=== PATIENT | male | born 1930 | race Caucasian/White ===

== ENCOUNTER → 2018-06-30 | Outpatient (CLI) | payer MEDICARE, BC, OTHER ==
[~2018-06-30] MED LIST: ALLOPURINOL 30300 M1 PO; ASPIRIN EC81 M1 PO; ATENOLOL 25MG T25 M1 PO; BRILINTA90 MG PO; BUSPAR 5 MG TABL5 M1; BUSPIRONE HCL10 MG PO; COZAAR 50 MG TA50 M1 PO; HYDROCHLOROTHIA25 M1 PO; HYTRIN 5 M5 MG/1 CAP PO; LANSOPRAZOLE30 MG PO; LIPITOR40 MG PO; NORCO 5-325 TA1 EAC1 PO; PROPRANOLOL 1010 MG PO; PROSCAR 5MG TABL5 MG PO; SERTRALINE HCL50 MG PO; TOLTERODINE TART4 MG PO; ULTRAM 50MG TAB50 MG PO; VITAMIN B-12500 MCG PO; VITAMIN B-6100 MG PO; VITAMIN B-625 MG PO; VITAMIN D31000 UNI2 PO; XANAX 0.5 MG0.5 M1 PO; ZOCOR 20 MG TAB20 M1 PO
--- NOTE | 2018-06-30 13:48 | 2DMMODE ---
[place] [address] 2 D/M-MODE ECHOCARDIOGRAM Name: KIRANHILLARY Silvia Room: [facility]#: [id number] Admission: 06/30/18 Attend Phys: Lacey Rodriguez Discharge: Date of : 32 Date of Service: 06/30/18 1347 Report #: [id number] THIS REPORT FOR: //name// APPROVED REPORT Study performed: 06/30/2018 09:54:03 EXAM: Comprehensive 2D, Doppler, and color-flow Echocardiogram Patient Location: Out-Patient BSA: 1.73 HR: 72 bpm BP: 116/60 mmHg Other Information Study Quality: Good Indications CAD Hypertension/HDD 2D Dimensions IVSd: 11.58 (7-11mm) LVOT Diam: 20.15 (18-24mm) LVDd: 39.66 mm PWd: 10.75 (7-11mm) Ascending Ao: 33.89 (22-36mm) LVDs: 22.62 (25-40mm) Aortic Root: 26.89 mm Volumes Left Atrial Volume (Systole) LA ESV Index: 16.60 mL/m2 Aortic Valve AoV Peak Osvaldo.: 1.45 m/s AO Peak Gr.: 8.46 mmHg LVOT Max P.83 mmHg AO Mean Gr.: 4.16 mmHg LVOT Mean P.21 mmHg LVOT Max V: 1.10 m/s AO V2 VTI: 28.19 cm LVOT Mean V: 0.68 m/s HEMA (VTI): 2.74 cm2 LVOT V1 VTI: 24.20 cm AI [place]: 4.52 m/s2 AI PHT: 312.98 ms Mitral Valve E/A Ratio: 0.59 MV Decel. Time: 242.42 [place] [address] 2 D/M-MODE ECHOCARDIOGRAM Name: HILLARY BECK Room: [facility]#: [id number] Admission: 06/30/18 Attend Phys: Lacey Rodriguez Discharge: Date of : 32 Date of Service: 06/30/18 1347 Report #: [id number] MV E Max Osvaldo.: 0.53 m/s MV PHT: 70.30 ms MVA (PHT): 3.13 cm2 TDI E/Lateral E': 6.63 E/Medial E': 7.57 Medial E' Osvaldo.: 0.07 m/s Lateral E' Osvaldo.: 0.08 m/s Pulmonary Valve PV Peak Osvaldo.: 1.15 m/s PV Peak Gr.: 5.31 mmHg Tricuspid Valve RAP Estimate: 5.00 mmHg TR Peak Gr.: 30.52 mmHg RVSP: 35.52 mmHg PA Pressure: 35.52 mmHg Left Ventricle The left ventricle is normal size. There is normal LV segmental wall motion. There is normal left ventricular wall thickness. Left ventricular systolic function is normal. The left ventricular ejection fraction is within the normal range. LVEF is 60%. Grade I - abnormal relaxation pattern. Right Ventricle The right ventricle is normal size. The right ventricular systolic function is normal. Atria The left atrium size is normal. The right atrium size is normal. Aortic Valve Mild aortic valve sclerosis. Mild aortic regurgitation. There is no aortic valvular stenosis. Mitral Valve The mitral valve is normal in structure. Mild mitral regurgitation. No evidence of mitral valve stenosis. Tricuspid Valve The tricuspid valve is normal in structure. Mild tricuspid regurgitation. Pulmonic Valve The pulmonary valve is normal in structure. [place] [address] 2 D/M-MODE ECHOCARDIOGRAM Name: HILLARY BECK Room: [facility]#: [id number] Admission: 06/30/18 Attend Phys: Lacey Rodriguez Discharge: Date of : 32 Date of Service: 06/30/18 1347 Report #: [id number] regurgitation. Great Vessels The aortic root is normal in size. IVC is normal in size and collapses >50% with inspiration. Pericardium There is no pericardial effusion. <Conclusion> The left ventricle is normal size. There is normal left ventricular wall thickness. Left ventricular systolic function is normal. The left ventricular ejection fraction is within the normal range. LVEF is 60%. Grade I - abnormal relaxation pattern. The right ventricle is normal size. The left atrium size is normal. Mild aortic valve sclerosis. Mild aortic regurgitation. There is no aortic valvular stenosis. The mitral valve is normal in structure. Mild mitral regurgitation. The tricuspid valve is normal in structure. Mild tricuspid regurgitation. IVC is normal in size and collapses >50% with inspiration. There is no pericardial effusion. There is normal LV segmental wall motion. <ELECTRONICALLY SIGNED> By: Chava Patterson MD, FACC 06/30/18 1347 1347 1347 Chava Patterson MD, FACC /INF
== END ==
LOC: M.CRD 09:37
DX: I08.8 Other rheumatic multiple valve diseases (principal); I25.10 Atherosclerotic heart disease of native coronary artery without angina pectoris; I10 Essential (primary) hypertension; Z88.8 Allergy status to other drugs, medicaments and biological substances

== ENCOUNTER 2018-07-21 02:55 | Emergency (ER) | payer MEDICARE, BC, OTHER ==
[~2018-07-21] VITALS: Ht 180.3 cm; Wt 61.2 kg
[2018-07-21] MEDS ORDERED: ALENDRONATE SOD70 MG PO (03:11)
[2018-07-21] MEDS ORDERED: ASPIR 8181 MG PO (03:11)
[2018-07-21] MEDS ORDERED: TUMS PO (03:12)
[2018-07-21] MEDS ORDERED: CLOPIDOGREL75 MG PO (03:12)
[2018-07-21 03:43] LABS: URINE BILIRUBIN NEGATIVE (Negative); URINE BLOOD TRACE (Negative); URINE CLARITY CLEAR; URINE COLOR YELLOW; URINE GLUCOSE-RANDOM NEGATIVE (Negative); URINE KETONES NEGATIVE (Negative); URINE LEUKOCYTES-REFLEX 1+ (Negative); URINE PROTEIN TRACE (Negative); URINE SPECIFIC GRAVITY 1.015 (1.005-1.030); URINE UROBILINOGEN 0.2 E.U./dl (0.2-1.0)
[2018-07-21 03:44] LABS: URINE NITRITE-REFLEX POSITIVE (Negative)
[2018-07-21 03:56] LABS: BACTERIA-REFLEX 1-9 Few /HPF (None Seen); CASTS None Seen /LPF (None Seen); SQUAMOUS NONE SEEN /LPF (0-3); URINE WBC-REFLEX >25 Many /HPF (0-5); WBC CLUMPS Moderate (None Seen)
[2018-07-21 03:57] LABS: CRYSTALS None Seen /LPF (None Seen); URINE RBC 0-2 Rare /HPF (0-2)
[2018-07-21 04:04] LABS: ABSOLUTE EOSINOPHILS 0.3 thou/uL (0.0-0.7); ABSOLUTE LYMPHOCYTES 1.1 thou/uL (0.8-5.3); ABSOLUTE MONOCYTES 0.5 thou/uL (0.0-1.2); ABSOLUTE NEUTROPHILS 4.2 thou/uL (1.6-8.1); BASOPHILS 0.7 %; EOSINOPHILS 4.7 %; HEMATOCRIT 34.3 % (42.0-52.0); HEMOGLOBIN 11.4 gm/dL (14.0-18.0); MCH 34.7 pg (26.0-34.0); MCHC 33.4 g/dL (28.0-37.0); MONOCYTES 8.9 %; MPV 7.3 fl. (7.2-11.1); NUCLEATED RBCS 0 /100WBC; PLATELET COUNT* 274 thou/uL (150-400); POLYS 67.7 %; RDW-CV 13.5 % (10.5-14.5); WBC 6.2 thou/uL (4.0-11.0)
[2018-07-21 04:15] LABS: INR 1.1; PROTIME 10.8 Seconds (9.20-11.50)
[2018-07-21 04:18] LABS: ANION GAP 7 mmol/L (7-16); BUN 24 mg/dL (7-18); CALCIUM 8.3 mg/dL (8.5-10.1); CHLORIDE 103 mmol/L (98-107); CO2 29 mmol/L (21-32); CREATININE 1.3 mg/dL (0.6-1.3); GLUCOSE 99 mg/dL (70-99); POTASSIUM 4.5 mmol/L (3.5-5.1); SODIUM 139 mmol/L (136-145)
[2018-07-21 04:36] LABS: ALBUMIN 2.6 g/dL (3.4-5.0); ALKALINE PHOSPHATASE 94 U/L (46-116); NT-PRO BRAIN NAT PEPTIDE 841 pg/mL (<300); SGOT 27 U/L (15-37); SGPT 37 U/L (30-65); TOTAL BILIRUBIN 0.5 mg/dL (<0.1-1.0); TOTAL PROTEIN 6.3 g/dL (6.4-8.2); TROPONIN-I LEVEL <0.06 ng/mL (<0.06)
[2018-07-21] MEDS ORDERED: LEVAQUIN 500 M500 MG PO (06:33)
[2018-07-21 06:47] VITALS: BP 144/54
--- NOTE | 2018-07-21 10:36 | EKG ---
[place] [address] ELECTROCARDIOGRAM REPORT Name: CORINNE BECKBY Silvia Room: [facility]#: [id number] Admission: 07/21/18 Attend Phys: Discharge: 07/21/18 Date of : 32 Report #: [id number] THIS REPORT FOR: //name// [facility] ED Test Date: 2018-07-21 Test Time: 03:02:23 Pat Name: HILLARY BECK Department: Room: Gender: M Data Entry Supervisor: : 1930 Requested By: Shanda Slade Order Number: [id number] MD: Chava Patterson Measurements Intervals [place] Rate: 67 P: 57 NV: 199 QRS: 42 QRSD: 89 T: 65 QT: 383 QTc: 405 Interpretive Statements Sinus rhythm Supraventricular bigeminy Compared to ECG 02/05/2016 09:02:01 Atrial premature complex(es) now present T-wave abnormality no longer present Electronically Signed On 07-21-2018 10:35:54 CDT by Chava Patterson [email or web address] <ELECTRONICALLY SIGNED> By: Chava Patterson MD, [facility] 07/21/18 1035 0302 030 Chava Patterson MD, [facility] /EPI
== END 2018-07-21 06:47 | disposition home or self-care (01) ==
LOC: M.ERS 02:55
PROVIDERS: Emergency Medicine
DX: N39.0 Urinary tract infection, site not specified (principal); I10 Essential (primary) hypertension; E78.00 Pure hypercholesterolemia, unspecified; M54.2 Cervicalgia; G89.29 Other chronic pain; Z96.659 Presence of unspecified artificial knee joint

== ENCOUNTER 2018-12-17 15:15 | Emergency (ER) | payer MEDICARE, BC, OTHER ==
[~2018-12-17] VITALS: Ht 180.3 cm; Wt 61.2 kg
[~2018-12-17 15:15] MED LIST changes: +ALENDRONATE SOD70 MG PO; +ASPIR 8181 MG PO; +CLOPIDOGREL75 MG PO; +LEVAQUIN 500 M500 MG PO; +TUMS PO
[2018-12-17] MEDS ORDERED: ZYLOPRIM300 MG PO (15:25)
[2018-12-17] MEDS ORDERED: VITAMIN B-12500 MCG PO (15:26)
[2018-12-17] MEDS ORDERED: PROTONIX40 M1 PO (15:26)
[2018-12-17] MEDS ORDERED: VITAMIN D2000 UNIT PO (15:26)
[2018-12-17] MEDS ORDERED: TYLENOL325 MG PO (15:27)
[2018-12-17] MEDS ORDERED: IRON325 PO (15:27)
[2018-12-17 15:43] LABS: ABSOLUTE BASOPHILS 0.1 thou/uL (0.0-0.2); ABSOLUTE EOSINOPHILS 0.2 thou/uL (0.0-0.7); ABSOLUTE LYMPHOCYTES 1.2 thou/uL (0.8-5.3); ABSOLUTE MONOCYTES 0.5 thou/uL (0.0-1.2); ABSOLUTE NEUTROPHILS 4.4 thou/uL (1.6-8.1); BASOPHILS 0.9 %; EOSINOPHILS 2.8 %; HEMATOCRIT 37.2 % (42.0-52.0); HEMOGLOBIN 12.8 gm/dL (14.0-18.0); LYMPHOCYTES 19.1 %; MCH 36.3 pg (26.0-34.0); MCHC 34.4 g/dL (28.0-37.0); MCV 105.5 fL (80.0-100.0); MONOCYTES 8.3 %; MPV 7.9 fl. (7.2-11.1); NUCLEATED RBCS 0 /100WBC; PLATELET COUNT* 228 thou/uL (150-400); POLYS 68.9 %; RBC 3.53 mil/uL (4.50-6.00); RDW-CV 14.1 % (10.5-14.5); WBC 6.4 thou/uL (4.0-11.0)
[2018-12-17 15:58] LABS: ANION GAP 7 mmol/L (7-16); BUN 23 mg/dL (7-18); CALCIUM 9.1 mg/dL (8.5-10.1); CHLORIDE 103 mmol/L (98-107); CO2 29 mmol/L (21-32); CREATININE 1.3 mg/dL (0.6-1.3); GLUCOSE 98 mg/dL (70-99); POTASSIUM 4.1 mmol/L (3.5-5.1); SODIUM 139 mmol/L (136-145)
[2018-12-17 16:11] LABS: ALBUMIN 3.6 g/dL (3.4-5.0); ALKALINE PHOSPHATASE 82 U/L (46-116); LIPASE 195 U/L (73-393); MAGNESIUM 1.8 mg/dL (1.8-2.4); NT-PRO BRAIN NAT PEPTIDE 439 pg/mL (<300); SGOT 19 U/L (15-37); SGPT 37 U/L (30-65); TOTAL BILIRUBIN 0.6 mg/dL (<0.1-1.0); TOTAL PROTEIN 7.2 g/dL (6.4-8.2); TROPONIN-I LEVEL <0.06 ng/mL (<0.06)
[2018-12-17 16:48] VITALS: BP 177/73
--- NOTE | 2018-12-19 16:51 | EKG ---
[place] [address] ELECTROCARDIOGRAM REPORT Name: CORINNE BECKBY Silvia Room: [facility]#: [id number] Admission: 12/17/18 Attend Phys: Discharge: 12/17/18 Date of : 32 Report #: [id number] THIS REPORT FOR: //name// [facility] ED Test Date: 2018-12-17 Test Time: 15:21:32 Pat Name: HILLARY BECK Department: Room: Gender: M Advertisement Distributor: CHERIE : 1930 Requested By: Zeb Alcantar Order Number: [id number] MD: Everett King Measurements Intervals [place] Rate: 77 P: 82 VT: 195 QRS: 69 QRSD: 92 T: 64 QT: 379 QTc: 429 Interpretive Statements Wandering atrial pacemaker Probable left atrial enlargement Compared to ECG 07/21/2018 03:02:23 Sinus rhythm no longer present Atrial premature complex(es) no longer present Electronically Signed On 12-19-2018 16:50:57 CDT by Everett King [email or web address] <ELECTRONICALLY SIGNED> By: Everett King MD, [facility] 12/19/18 1650 1521 152 Everett King MD, [facility] /EPI
== END 2018-12-17 16:49 | disposition home or self-care (01) ==
LOC: M.ERS 15:15
PROVIDERS: Emergency Medicine Emergency Medical Services
DX: R00.2 Palpitations (principal); I10 Essential (primary) hypertension; E78.00 Pure hypercholesterolemia, unspecified; G89.29 Other chronic pain

== ENCOUNTER 2018-12-24 19:34 | Emergency (ER) | payer MEDICARE, BC, OTHER ==
[~2018-12-24] VITALS: Ht 175.3 cm; Wt 61.2 kg
[~2018-12-24 19:34] MED LIST changes: +IRON325 PO; +PROTONIX40 M1 PO; +TYLENOL325 MG PO; +VITAMIN D2000 UNIT PO; +ZYLOPRIM300 MG PO
[2018-12-24 20:36] LABS: ABSOLUTE BASOPHILS 0.1 thou/uL (0.0-0.2); ABSOLUTE EOSINOPHILS 0.2 thou/uL (0.0-0.7); ABSOLUTE LYMPHOCYTES 1.5 thou/uL (0.8-5.3); ABSOLUTE MONOCYTES 0.5 thou/uL (0.0-1.2); ABSOLUTE NEUTROPHILS 4.5 thou/uL (1.6-8.1); EOSINOPHILS 3.6 %; HEMOGLOBIN 13.3 gm/dL (14.0-18.0); LYMPHOCYTES 22.6 %; MCH 36.2 pg (26.0-34.0); MCHC 34.1 g/dL (28.0-37.0); MCV 106.2 fL (80.0-100.0); MONOCYTES 7.3 %; NUCLEATED RBCS 0 /100WBC; PLATELET COUNT* 244 thou/uL (150-400); POLYS 65.5 %; RBC 3.67 mil/uL (4.50-6.00); RDW-CV 14.1 % (10.5-14.5); WBC 6.8 thou/uL (4.0-11.0)
[2018-12-24 20:49] LABS: CALCIUM 9.4 mg/dL (8.5-10.1); CREATININE 1.2 mg/dL (0.6-1.3); POTASSIUM 4.2 mmol/L (3.5-5.1)
[2018-12-24 20:54] LABS: ALBUMIN 3.7 g/dL (3.4-5.0); TOTAL BILIRUBIN 1.1 mg/dL (<0.1-1.0)
[2018-12-24 21:29] VITALS: BP 156/66
--- NOTE | 2018-12-27 11:01 | EKG ---
[place] [address] ELECTROCARDIOGRAM REPORT Name: CORINNE BECKBY Silvia Room: [facility]#: [id number] Admission: 12/24/18 Attend Phys: Discharge: 12/24/18 Date of : 32 Report #: [id number] THIS REPORT FOR: //name// [facility] ED Test Date: 2018-12-24 Test Time: 20:14:02 Pat Name: HILLARY BECK Department: Room: Gender: M Car Shifter: : 1930 Requested By: Shanda Slade Order Number: [id number] MD: Nikos Hong Measurements Intervals [place] Rate: 64 P: 40 MT: 192 QRS: 27 QRSD: 99 T: 56 QT: 411 QTc: 424 Interpretive Statements Sinus rhythm Atrial premature complex Compared to ECG 12/17/2018 15:21:32 no change Electronically Signed On 12-27-2018 11:00:50 CDT by Nikos Hong [email or web address] <ELECTRONICALLY SIGNED> By: Nikos Hong MD, [facility] 12/27/18 [facility] [place] [facility] [place] 13 13 Nikos Hong MD, FACC /EPI
== END 2018-12-24 21:33 | disposition home or self-care (01) ==
LOC: M.ERS 19:34
PROVIDERS: Emergency Medicine
DX: I10 Essential (primary) hypertension (principal); E78.00 Pure hypercholesterolemia, unspecified; G89.29 Other chronic pain; M54.2 Cervicalgia; Z95.2 Presence of prosthetic heart valve; Z96.649 Presence of unspecified artificial hip joint

== ENCOUNTER → 2021-02-18 | Outpatient (CLI) | payer MEDICARE, BC, OTHER ==
--- NOTE | 2021-02-18 12:40 | 2DMMODE ---
[place] [address] 2 D/M-MODE ECHOCARDIOGRAM Name: HILLARY BECK Room: [facility]#: [id number] Admission: 02/18/21 Attend Phys: Lacey Rodriguez Discharge: Date of : 32 Date of Service: 02/18/21 1240 Report #: [id number] THIS REPORT FOR: cc: WINNIE TORRES,WINNIE Hong,Nikos Cruz MD [facility] ~ APPROVED REPORT Study performed: 02/18/2021 12:03:34 EXAM: Comprehensive 2D, Doppler, and color-flow Echocardiogram Patient Location: Out-Patient BSA: 1.81 HR: 80 bpm BP: 166/70 mmHg Other Information Study Quality: Good Indications CAD Hypertension/HDD 2D Dimensions IVSd: 10.52 (7-11mm) LVOT Diam: 20.87 (18-24mm) LVDd: 46.36 mm PWd: 11.68 (7-11mm) Ascending Ao: 33.16 (22-36mm) LVDs: 26.82 (25-40mm) Aortic Root: 29.48 mm Volumes Left Atrial Volume (Systole) LA ESV Index: 21.90 mL/m2 Aortic Valve AoV Peak Osvaldo.: 1.33 m/s AO Peak Gr.: 7.03 mmHg LVOT Max P.25 mmHg AO Mean Gr.: 3.69 mmHg LVOT Mean P.98 mmHg LVOT Max V: 1.60 m/s AO V2 VTI: 26.89 cm LVOT Mean V: 0.89 m/s HEMA (VTI): 4.14 cm2 LVOT V1 VTI: 32.51 cm AI [place]: 2.58 m/s2 AI PHT: 495.42 [place] [address] 2 D/M-MODE ECHOCARDIOGRAM Name: HILLARY BECK Room: [facility]#: [id number] Admission: 02/18/21 Attend Phys: Lacey Rodriguez Discharge: Date of : 32 Date of Service: 02/18/21 1240 Report #: [id number] Mitral Valve E/A Ratio: 0.51 MV Decel. Time: 302.50 ms MV E Max Osvaldo.: 0.49 m/s MV PHT: 87.73 ms MVA (PHT): 2.51 cm2 TDI E/Lateral E': 4.90 E/Medial E': 7.00 Medial E' Osvaldo.: 0.07 m/s Lateral E' Osvaldo.: 0.10 m/s Pulmonary Valve PV Peak Osvaldo.: 1.12 m/s PV Peak Gr.: 4.98 mmHg Tricuspid Valve RAP Estimate: 5.00 mmHg TR Peak Gr.: 26.69 mmHg RVSP: 31.69 mmHg PA Pressure: 31.69 mmHg Left Ventricle The left ventricle is normal size. There is normal LV segmental wall motion. There is normal left ventricular wall thickness. Left ventricular systolic function is normal. The left ventricular ejection fraction is within the normal range. LVEF is 55-60%. Grade I - abnormal relaxation pattern. Right Ventricle The right ventricle is normal size. The right ventricular systolic function is normal. Atria The left atrium size is normal. The right atrium size is normal. Aortic Valve The Aortic valve is sclerotic. Mild aortic regurgitation. There is no aortic valvular stenosis. Mitral Valve The mitral valve is normal in structure. Mild mitral regurgitation. No evidence of mitral valve stenosis. Tricuspid Valve The tricuspid valve is normal in structure[place] [address] 2 D/M-MODE ECHOCARDIOGRAM Name: HILLARY BECK Room: [facility]#: [id number] Admission: 02/18/21 Attend Phys: Lacey Rodriguez Discharge: Date of : 32 Date of Service: 02/18/21 1240 Report #: [id number] regurgitation. Pulmonic Valve The pulmonary valve is normal in structure. Mild pulmonic regurgitation. Great Vessels The aortic root is normal in size. IVC is normal in size and collapses >50% with inspiration. Pericardium There is no pericardial effusion. <Conclusion> LVEF is 55-60%. The Aortic valve is sclerotic. Mild mitral regurgitation. <ELECTRONICALLY SIGNED> By: Nikos Hong MD, FACC 02/18/21 1240 1240 1240 Nikos Hong MD, FACC /INF
== END ==
LOC: M.CRD 02-04 11:00 → M.ULTRA 02-04 11:30 → M.CRD 10:29
PROVIDERS: ATTEND Internal Medicine
DX: I08.8 Other rheumatic multiple valve diseases (principal); I65.23 Occlusion and stenosis of bilateral carotid arteries; I25.10 Atherosclerotic heart disease of native coronary artery without angina pectoris; I10 Essential (primary) hypertension